=== PATIENT | male | born 1985 | race Two or more races ===

== ENCOUNTER 2020-12-24 16:11 | Emergency (ER) | payer SELFPAY ==
[~2020-12-24] VITALS: Ht 180.3 cm; Wt 61.2 kg
[2020-12-24] MEDS ORDERED: HYDROcodone-ACET 5/325MG TAB PO ONE (16:30)
[2020-12-24 17:47] VITALS: BP 117/78
== END 2020-12-24 17:57 | disposition home or self-care (01) ==
LOC: ER 16:11
DX: S90.31XA Contusion of right foot, initial encounter (principal); F17.210 Nicotine dependence, cigarettes, uncomplicated; W18.39XA Other fall on same level, initial encounter; Y93.01 Activity, walking, marching and hiking; Y92.89 Other specified places as the place of occurrence of the external cause; Y99.8 Other external cause status
CPT/HCPCS: 73630